=== PATIENT | female | born 1960 | race Caucasian/White ===

== ENCOUNTER 2020-06-23 12:38 | Outpatient (CLI) | payer MEDICARE, OTHER | END 2020-06-23 23:59 | disposition home or self-care (01) | LOC: VAS 12:38 | PROVIDERS: ATTEND Pediatrics Sports Medicine | DX: I82.811 Embolism and thrombosis of superficial veins of right lower extremity (principal) | CPT/HCPCS: 93971 ==

== ENCOUNTER 2024-04-30 14:35 | Outpatient (CLI) | payer MEDICARE, OTHER | END 2024-04-30 23:59 | disposition home or self-care (01) | LOC: RAD 14:35 | PROVIDERS: ATTEND Specialist | DX: M19.012 Primary osteoarthritis, left shoulder (principal); M75.102 Unspecified rotator cuff tear or rupture of left shoulder, not specified as traumatic; M25.512 Pain in left shoulder | CPT/HCPCS: 73200 ==